=== PATIENT | female | born 2000 | race Caucasian/White ===

== ENCOUNTER → 2022-04-15 15:54 | Outpatient (BNVA) | payer OTHER, SELFPAY | PROVIDERS: Visit Provider Family Medicine | DX: G89.29 Other chronic pain (principal); L70.9 Acne, unspecified; R51.9 Headache, unspecified; Z76.89 Persons encountering health services in other specified circumstances | CPT/HCPCS: 80053; 84443; 85025; 85651; 86140 ==

== ENCOUNTER 2022-11-22 13:35 | Outpatient (CLI) | payer OTHER, SELFPAY | END 2022-11-22 13:36 | disposition home or self-care (01) | PROVIDERS: PCP Family Medicine; Visit Provider Nurse Practitioner | DX: R11.0 Nausea (principal) | CPT/HCPCS: 84702 ==

== ENCOUNTER 2023-05-22 13:17 | Emergency (ER) | payer SELFPAY ==
--- NOTE | 2023-05-22 13:29 | ECG_ITS ---
[facility] Test Date: 2023-05-22 Pat Name: Leigh Ann Ng Department: Room: Gender: Female Measurement Psychologist: : 2000 Requested By: Sanchez Mora Order Number: [id number] David MD: Pura Dominguez M.D. Measurements Intervals [place] Rate: 103 P: 79 NV: 136 QRS: 100 QRSD: 101 T: 50 QT: 322 QTc: 422 Interpretive Statements SINUS TACHYCARDIA BORDERLINE RIGHT AXIS DEVIATION [QRS AXIS > 90] NONSPECIFIC T-WAVE ABNORMALITY ABNORMAL RHYTHM ECG No previous ECG available for comparison Electronically Signed On 05-23-2023 10:20:23 CDT by Pura Dominguez M.D. [id number]
[2023-05-22 13:32] VITALS: BP 135/83; PULSE 107; RESP 18; TEMP 36.8; O2SAT 100; BMI 21.9
[2023-05-22 13:56] VITALS: BP 136/78; PULSE 99; RESP 18; O2SAT 100
--- NOTE | 2023-05-22 13:58 | ED_ITS ---
HPI - Arrhythmia/Palpitations General: Chief Complaint: Arrhythmia/Palpitations Stated Complaint: heart palpitation/SOB Time Seen by Provider: 05/22/23 13:39 Source: patient Mode of arrival: ambulatory History of Present Illness: 22-year-old female presents emergency room complaining of palpitations and racing heart rate. She has had this intermittently for about a month. She talked to her PCP this thought was anxiety. She has been started on escitalopram and hydralazine. She is still having symptoms at this time. She h as had this in the past she had worn a Holter monitor 8 to 10 years ago MD complaint: rapid heart beat, heart racing and palpitations Onset (ago): hour(s) Duration: constant Severity: mild Associated symptoms: Deny anxiety, cough, diaphoresis, muscle cramps, nausea, paresthesias, pre-syncope, sense of impending doom, short of breath, syncope or vomiting Review of Systems Const: Denies: diaphoresis Card: Denies: syncope or pre-syncope Resp: Denies: dyspnea GI: Denies: nausea or vomiting : Denies: dysuria, urinary frequency or urinary urgency Musc: Denies: muscle cramps Skin/Breast: Denies: rash Psych: Denies: anxiety PFSH ED PFSH: Social History Smoking and tobacco/nicotine status: never used tobacco/nicotine Second hand smoke exposure: No Female Reproductive History: Spontaneous abortions: No Physical Exam Const: COMMON NORMALS: no acute distress GENERAL APPEARANCE: cooperative and comfortable ORIENTATION/CONSCIOUSNESS: Yes awake, Yes oriented to person, Yes oriented to place and Yes oriented to time HENMT: COMMON NORMALS: normocephalic, atraumatic and hearing grossly normal bilaterally HEAD & SCALP: normocephalic and atraumatic Resp: COMMON NORMALS: normal respiratory effort, No retractions, No use of accessory muscles and clear to auscultation bilaterally AUSCULTATION: clear to auscultation bilaterally Cardio: COMMON NORMALS: regular rate, regular rhythm and No murmurs present (Cardio) RATE: regular rate RHYTHM: regular rhythm GI: COMMON NORMALS: Soft to palpation and No hepatosplenomegaly present AUSCULTATION: Yes normoactive bowel sounds PALPATION: Yes Soft to palpation, No Tenderness to palpation present (GI), No Guarding due to palpation present (GI) and Yes No hepatosplenomegaly present Extremity: COMMON NORMALS: normal to inspection, capillary refill normal, no clubbing, cyanosis or edema, no calf tenderness and no pedal edema Neuro: SENSORIUM/ORIENTATION: Yes oriented to person, Yes oriented to place and Yes oriented to time Skin: COMMON NORMALS: no rashes or lesions noted GENERAL SKIN EXAM: no rashes or lesions noted Course Vital Signs: Vital signs: Vital Signs Temperature 98.2 F 05/22/23 13:32 Pulse Rate 82 05/22/23 16:11 Respiratory Rate 16 05/22/23 16:11 Blood Pressure 98/74 05/22/23 16:11 Pulse Oximetry 97 05/22/23 16:11 Oxygen Delivery Me thod Room Air 05/22/23 14:31 MDM - Arrhythmia/Palpitations Medical Decision Making No arrhythmias on a twelve-lead EKG on monitoring. Laboratory test reviewed. Set patient up with an outpatient 48-hour Holter monitor follow-up with primary care if this persists and there is no finding of a 48-hour Holter May need event monitor. Return if has further problems. Medical Records I reviewed the patient's medical records. Lab Data I reviewed the patient's lab results. 05/22/23 14:26 05/22/23 14:26 Radiology Impressions Chest X-Ray 05/22/23 14:36 IMPRESSION: Borderline cardiomegaly otherwise negative chest. Laboratory Results WBC 8.63 10^3/uL (3.29-11.43) 05/22/23 14: RBC 4.54 10^6/uL (3.85-5.65) 05/22/23 14:26 Hgb 12.90 g/dL (11.27-16.99) 05/22/23 14:26 Hct 39.2 % (36-47) 05/22/23 14:26 MCV 86.3 fl (85-98) 05/22/23 14:26 MCH 28.4 pg (27-33) 05/22/23 14:26 MCHC 32.9 g/dL (30-55) 05/22/23 14:26 RDW 13.4 % (12.1-15.1) 05/22/23 14:26 Plt Count 244 10^3/cmm (157-399) 05/22/23 14: MPV 9.2 fL (7.4-10.4) 05/22/23 14: Neut % (Auto) 68.8 % 05/22/23 14: Lymph % (Auto) 20.7 % 05/22/23 14: Saline % (Auto) 7.9 % 05/22/23 14: Eos % (Auto) 2.0 % 05/22/23 14: Baso % (Auto) 0.3 % 05/22/23 14: Neut # (Auto) 5.93 10^3/uL (1.8-7.7) 05/22/23 14: Lymph # (Auto) 1.8 10^3/uL (0.8-4.8) 05/22/23 14: Saline # (Auto) 0.7 10^3/uL (0.2-0.9) 05/22/23 14: Eos # (Auto) 0.2 10^3/uL (0.0-0.8) 05/22/23 14: Baso # (Auto) 0.0 10^3/uL (0.0-0.1) 05/22/23 14: Nucleated RBC % (auto) 0 % 05/22/23 14: Nucleated RBCs # 0.0 /100WBC 05/22/23 14:26 Sodium 138 mmol/L (136-145) 05/22/23 14:26 Potassium 3.5 mmol/L (3.5-5.1) 05/22/23 14:26 Chloride 104 mmol/L (98-107) 05/22/23 14:26 Carbon Dioxide 25 mmol/L (22-29) 05/22/23 14:26 Anion Gap 12.5 (5-19) 05/22/23 14:26 BUN 13 mg/dL (6-20) 05/22/23 14:26 Creatinine 0.8 mg/dL (0.5-0.9) 05/22/23 14:26 GFR Calculation 89.7 mL/min (90-130) L 05/22/23 14:26 Glucose 94 mg/dL (65-115) 05/22/23 14:26 Calculated Osmolality 286 mOsm/kg (285-295) 05/22/23 14:26 Calcium 9.7 mg/dL (8.5-10.5) 05/22/23 14:26 Total Bilirubin 0.4 mg/dL (0.15-1.2) 05/22/23 14:26 AST 20 U/L (0-32) 05/22/23 14:26 ALT 19 U/L (0-33) 05/22/23 14:26 Alkaline Phosphatase 64 U/L (35-105) 05/22/23 14:26 Total Protein 7.2 g/dL (6.6-8.7) 05/22/23 14:26 Albumin 4.6 g/dL (3.5-5.2) 05/22/23 14:26 Globulin 2.6 g/dL (1.3-4.6) 05/22/23 14:26 HCG, Qual Negative (Negative) 05/22/23 14:26 Urine Color Yellow (Yellow) 05/22/23 14:05 Urine Appearance Clear (CLEAR) 05/22/23 14:05 Urine pH 7 (5-7) 05/22/23 14:05 Ur Specific [place] 1.005 (1.005-1.030) 05/22/23 14:05 Urine Protein Neg (Negative) 05/22/23 14:05 Urine Glucose (UA) Norm (Normal) 05/22/23 14:05 Urine Ketones Negative (Negative) 05/22/23 14:05 Urine Blood Neg (Negative) 05/22/23 14:05 Urine Nitrate Negative (Negative) 05/22/23 14:05 Urine Bilirubin Neg (Negative) 05/22/23 14:05 Urine Urobilinogen Norm mg/dL (Negative) 05/22/23 14:05 Ur Leukocyte Esterase Negative (Negative) 05/22/23 14:05 All radiology interpretation(s) finalized by discharge Discharge Plan Discharge Patient Disposition: Home Clinical Impression: Palpitations Condition: Stable Prescriptions: No Action hydroxyzine HCl 25 mg tablet See Rx Instructions .ROUTE .COMPLEX Rx Instructions: Take 12.5 to 25 mg (1/2 to 1) tablet by mouth every 6 hours as needed escitalopram oxalate 20 mg tablet 20 mg PO QAM Discharge Orders: Discharge ED (Routine); Ordered 05/22/23 Ordered By: Sanchez Arshad Referrals: Tyree Garcia DO [Primary Care Provider] - Discharge Diet: Usual diet Discharge Activity: Increase activity as tolerated Patient Instructions: Opioid Safety, Pain Management Activity Restrictions/Additional Instructions: You are seen today for complaint of rapid heart rate and palpitations your heart rhythm was normal while in the emergency room. Recommend a 48-hour Holter monitor to try to capture your rhythm at the time of your symptoms to d efinitively diagnose. Continue your routine activities follow-up with your primary care doctor after the 48-hour Holter is completed. If there is no finding on this you may need to have a 30-day event monitor. Coding Level of Care Code ED Marketing Sales Consultant for Kourtney Cornejo
[2023-05-22 14:24] LABS: Add Urine Microscopic? NO; Charge for UA Resulting for Rev
[2023-05-22 14:28] LABS: Bilirubin Urine Neg (Negative); Blood Urine Neg (Negative); Glucose Urine UA Norm (Normal); Ketones Urine Negative (Negative); Leukocyte Esterase Urine Negative (Negative); Nitrate Urine Negative (Negative); Protein Urine Neg (Negative); Specific Gravity, Urine 1.005 (1.005-1.030); Urine Appearance Clear (CLEAR); Urine Color Yellow (Yellow); Urobilinogen Urine Norm (Negative); pH Urine 7 (5-7)
[2023-05-22] MEDS: sodium chloride 0.9% 1,000 ML 999 ML IV (14:29)
[2023-05-22 14:30] VITALS: BP 115/77; PULSE 91; RESP 16; O2SAT 98
[2023-05-22 14:31] VITALS: O2SAT 98
--- NOTE | 2023-05-22 14:36 | XRR_ITS ---
PROCEDURE INFORMATION: Exam: XR Chest Exam date and time: 05/22/2023 2:44 PM Age: 22 years old Clinical indication: Shortness of breath and other: Heart palpitations; Patient HX: Heart palpitations; SOB TECHNIQUE: Imaging protocol: Radiologic exam of the chest. Views: 1 view. COMPARISON: No relevant prior studies available. FINDINGS: Lungs: Unremarkable. No consolidation. Pleural spaces: Unremarkable. No pleural effusion. No pneumothorax. Heart/Mediastinum: Cardiac silhouette appears borderline enlarged on this portable chest. Bones/joints: Unremarkable. XR/XR chest 1V portable [id number] IMPRESSION: Borderline cardiomegaly otherwise negative chest.
[2023-05-22 14:43] LABS: Basophils % 0.3 %; Eosinophils # 0.2 10^3/uL (0.0-0.8); Hematocrit 39.2 % (36-47); Lymphocytes # 1.8 10^3/uL (0.8-4.8); Lymphocytes % 20.7 %; Mean Corpuscular HGB Conc 32.9 g/dL (30-55); Mean Corpuscular Hemoglobin 28.4 pg (27-33); Mean Corpuscular Volume 86.3 fl (85-98); Mean Platelet Volume 9.2 fL (7.4-10.4); Monocytes # 0.7 10^3/uL (0.2-0.9); Monocytes % 7.9 %; Neutrophils # 5.93 10^3/uL (1.8-7.7); Neutrophils % 68.8 %; Nucleated Red Blood Cells % 0 %; Platelet Count 244 10^3/cmm (157-399); Red Blood Count 4.54 10^6/uL (3.85-5.65); Red Cell Distribution Width 13.4 % (12.1-15.1); White Blood Count 8.63 10^3/uL (3.29-11.43)
[2023-05-22 14:54] LABS: Alanine Aminotransferase 19 U/L (0-33); Albumin Level 4.6 g/dL (3.5-5.2); Alkaline Phosphatase 64 U/L (35-105); Anion Gap 12.5 (5-19); Aspartate Amino Transferase 20 U/L (0-32); Blood Urea Nitrogen 13 mg/dL (6-20); Calcium 9.7 mg/dL (8.5-10.5); Carbon Dioxide 25 mmol/L (22-29); Chloride 104 mmol/L (98-107); Globulin 2.6 g/dL (1.3-4.6); Glomerular Filtration Rate 89.7 mL/min (90-130); Glucose 94 mg/dL (65-115); Osmolality Calculated 286 mOsm/kg (285-295); Potassium 3.5 mmol/L (3.5-5.1); Sodium 138 mmol/L (136-145); Total Bilirubin 0.4 mg/dL (0.15-1.2); Total Protein 7.2 g/dL (6.6-8.7)
[2023-05-22 15:00] LABS: HCG, Serum Qual Negative (Negative)
[2023-05-22 16:11] VITALS: BP 98/74; PULSE 82; RESP 16; O2SAT 97
--- NOTE | 2023-05-23 14:58 | DCPLANNER ---
Faxed order for 48 hour holter monitor ot [facility] heart [facility]. Clinic to contact patient,.
== END 2023-05-22 16:12 | disposition home or self-care (01) ==
PROVIDERS: Emergency Provider Family Medicine; PCP Family Medicine
DX: R00.2 Palpitations (principal)
CPT/HCPCS: 71045; 80053; 81003; 84703; 85025; 93005; 99285; J7030